=== PATIENT | female | born 1990 | race American Indian/Alaskan Native ===

== ENCOUNTER 2017-03-26 08:22 | Emergency (ER) | payer SELFPAY ==
[2017-03-26] MEDS ORDERED: NORCO 5/325 PO ONE (09:23)
[2017-03-26] MEDS ORDERED: CLEOCIN IM ONE (09:23)
[2017-03-26] MEDS ORDERED: ZOFRAN ODT PO ONE (09:23)
[2017-03-26] MEDS ORDERED: NACL 0.9% IR ONE (09:23)
[2017-03-26] MEDS ORDERED: XYLOCAINE 1% 20 mL INFILTRATI ONE (09:25)
--- NOTE | 2017-03-26 09:31 | Emergency Department Report ---
ED Female HPI - General Chief complaint: Skin/Abscess/Foreign Body Stated complaint: CYST ON VAG Time Seen by Provider: 03/26/17 09:05 Source: patient Mode of arrival: Ambulatory Limitations: No Limitations - History of Present Illness Initial comments: PT states she noticed a bump on the R side of her vagina on Monday. PT reports recent shaving to the area. PT states she thought it was an ingrown hair but she has never had an ingrown hair do this. PT reports pain 9/10 pain with sitting and 10/10 pain with walking. PT states last night she tried a home remedy of baking soda, salt and water. PT states it did not help. PT states now her whole lip is swollen. 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 MD Complaint: pelvic pain Onset/Timin -: Gradual, days(s) Location: labia (r) Radiation: non-radiating Severity: severe Severity scale (0 -10): 10 Quality: sharp Consistency: constant Improves with: none Worsens with: movement Are you Now?: No Associated Symptoms: nausea/vomiting - Related Data Sexually active: Yes Previous Rx's Medication Instructions Recorded Last Taken Type ALBUTEROL NEB's [Proventil 0.083% 2.5 mg IH TID PRN #1 box 09/21/16 Unknown Rx NEBS] Albuterol Sulfate [Ventolin HFA] 2 puff IH Q4H PRN #1 hfa.aer.ad 09/21/16 Unknown Rx Cetirizine HCl [ZyrTEC] 10 mg PO DAILY #30 capsule 09/21/16 Unknown Rx Nebulizer/Compressor [Innospire 1 each MC TID #1 each 09/21/16 Unknown Rx Mini Compressor Neb] Clindamycin [Clindamycin CAP] 300 mg PO Q8H #30 cap 03/26/17 Unknown Rx HYDROcodone/APAP 5-325 [[place] 1 each PO Q6HR PRN #10 tablet 03/26/17 Unknown Rx 5/325] Ibuprofen [Motrin] 600 mg PO Q8H PRN #15 tablet 03/26/17 Unknown Rx Allergies Allergy/AdvReac Type Severity Reaction Status Date / Time seafood Allergy Swelling Uncoded 07/05/16 23:49 ED Review of Systems ROS: Stated complaint: CYST ON VAG Other details as noted in HPI Comment: All other systems reviewed and negative Constitutional: denies: chills, fever Gastrointestinal: nausea. denies: abdominal pain, vomiting Genitourinary: other (pain and swellig ). denies: dysuria Skin: as per HPI, change in color ED Past Medical Hx - Past Medical History Previous Medical History?: Yes Hx Asthma: Yes Additional medical history: murmur. 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 murmur repair - Social History Smoking Status: Current Every Day Smoker Substance Use Type: Alcohol - Medications Home Medications: Home Medications Medication Instructions Recorded Confirmed Last Taken Type ALBUTEROL NEB's [Proventil 0.083% 2.5 mg IH TID PRN #1 box 09/21/16 Unknown Rx NEBS] Albuterol Sulfate [Ventolin HFA] 2 puff IH Q4H PRN #1 hfa.aer.ad 09/21/16 Unknown Rx Cetirizine HCl [ZyrTEC] 10 mg PO DAILY #30 capsule 09/21/16 Unknown Rx Nebulizer/Compressor [Innosp[place] 1 each MC TID #1 each 09/21/16 Unknown Rx Mini Compressor Neb] Clindamycin [Clindamycin CAP] 300 mg PO Q8H #30 cap 03/26/17 Unknown Rx HYDROcodone/APAP 5-325 [[place] 1 each PO Q6HR PRN #10 tablet 03/26/17 Unknown Rx 5/325] Ibuprofen [Motrin] 600 mg PO Q8H PRN #15 tablet 03/26/17 Unknown Rx ED Physical Exam - General Limitations: No Limitations General appearance: alert, other (appears in pain ) - Head Head exam: Present: atraumatic, normocephalic, normal inspection - Eye Eye exam: Present: normal appearance. Absent: PERRL, conjunctival injection - ENT ENT exam: Present: normal exam, normal external ear exam - Neck Neck exam: Present: normal inspection, full ROM - Respiratory Respiratory exam: Present: normal lung sounds bilaterally. Absent: respiratory distress, wheezes - Cardiovascular Cardiovascular Exam: Present: normal rhythm, tachycardia - GI/Abdominal GI/Abdominal exam: Present: soft, normal bowel sounds. Absent: tenderness - External exam: Present: swelling (to R labia with abscess ). Absent: lesions, ecchymosis, bleeding - Extremities Exam Extremities exam: Present: normal inspection, full ROM - Back Exam Back exam: Present: normal inspection, full ROM - Neurological Exam Neurological exam: Present: alert, oriented X3, normal gait - Psychiatric Psychiatric exam: Present: normal affect, anxious - Skin Skin exam: Present: warm, dry, intact ED Course Vital Signs 03/26/17 03/26/17 08:34 11:11 Temperature 98.7 F 99 F Pulse Rate 124 H 66 Respiratory 16 18 Rate Blood Pressure 124/71 Blood Pressure 119/60 [Left] O2 Sat by Pulse 98 98 Oximetry - Reevaluation(s) Reevaluation #1: 03/26/17 09:32 PT aware of plan of care. PT gave verbal consent for bedside I and D. Reevaluation #2: 03/26/17 11:14 PT tolerated the I and D without any immediate complications. PT given verbal instructions on home care. PT aware she will need to return in 2 days for recheck - I & D Right Lateral Genitals Type of Procedure: Complex Site: R labia Blade Size: 11 I & D Procedure: betadine prep, sterile drapes applied, sterile dressing applied , gauze wick placed (1/2 inch iodoform ) Progress: Pt's skin cleansed with betadine. 8 mls of 1% lidocaine used to anesthetize the area. 11 blade was used to make an incision, + copious amount of purulent drainage noted. site flushed with sterile water and hemostats were used to break up any loculations. 1/2 inch packing placed. - Pulse Oximetry Interpretation Digit-Finger Initial Pulse Oximetry Readin Actions Taken: none ED Medical Decision Making - Differential Diagnosis abscess, cellulitis Critical Care Time: No Critical care attestation.: If time is entered above; I have spent that time in minutes in the direct care of this critically ill patient, excluding procedure time. ED Disposition Clinical Impression: Abscess or cellulitis of groin Disposition: DC-01 TO HOME OR SELFCARE Is pt being admited?: No Does the pt Need Aspirin: No Condition: Stable Instructions: Cellulitis (ED), Abscess Incision and Drainage (ED), Abscess (ED) Additional Instructions: Warm compresses at least 4 times a day No driving or ETOH after taking [place] Return in 2 days for packing removal/ wound recheck REturn to the ED sooner if worsening No shaving Prescriptions: Clindamycin [Clindamycin CAP] 300 mg PO Q8H #30 cap HYDROcodone/APAP 5-325 [[place] 5/325] 1 each PO Q6HR PRN #10 tablet PRN Reason: Pain Ibuprofen [Motrin] 600 mg PO Q8H PRN #15 tablet PRN Reason: Pain Referrals: PRIMARY CARE, [Primary Care Provider] - 3-5 Days MEAGAN ROMERO MD [Staff Physician] - 3-5 Days Time of Disposition: 11:16
[2017-03-26] MEDS: EMLA TP ONE ×2 (09:55→10:37)
[2017-03-26 11:13] VITALS: BP 119/60
== END 2017-03-26 11:20 | disposition home or self-care (01) ==
LOC: ED 08:22
DX: N76.4 Abscess of vulva (principal); Z91.013 Allergy to seafood
CPT/HCPCS: 87116; 96372; Q0162

== ENCOUNTER 2017-03-28 10:48 | Emergency (ER) | payer SELFPAY ==
[2017-03-28 11:28] VITALS: BP 118/71
--- NOTE | 2017-03-28 12:00 | Emergency Department Report ---
Suture/Staple Removal - HPI Chief Complaint: Skin/Abscess/Foreign Body Stated Complaint: REMOVE PACKING OUT OF CUT Time Seen by Provider: 03/28/17 11:49 When Sutures or [place] Placed: 2 days ago Wound Location: R groin ED Review of Systems ROS: Stated complaint: REMOVE PACKING OUT OF CUT Other details as noted in HPI Comment: All other systems reviewed and negative Constitutional: denies: chills, fever Gastrointestinal: denies: nausea, vomiting, diarrhea Genitourinary: other (pt states the swelling has decreased, + drainage for I and D site ). denies: dysuria Skin: other (packing in place to R labia) ED Past Medical Hx - Past Medical History Hx Asthma: Yes Additional medical history: murmur. 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 murmur repair - Social History Smoking Status: Current Every Day Smoker Substance Use Type: None - Medications Home Medications: Home Medications Medication Instructions Recorded Confirmed Last Taken Type ALBUTEROL NEB's [Proventil 0.083% 2.5 mg IH TID PRN #1 box 09/21/16 Unknown Rx NEBS] Albuterol Sulfate [Ventolin HFA] 2 puff IH Q4H PRN #1 hfa.aer.ad 09/21/16 Unknown Rx Cetirizine HCl [ZyrTEC] 10 mg PO DAILY #30 capsule 09/21/16 Unknown Rx Nebulizer/Compressor [Innospire 1 each MC TID #1 each 09/21/16 Unknown Rx Mini Compressor Neb] Clindamycin [Clindamycin CAP] 300 mg PO Q8H #30 cap 03/26/17 Unknown Rx HYDROcodone/APAP 5-325 [[place] 1 each PO Q6HR PRN #10 tablet 03/26/17 Unknown Rx 5/325] Ibuprofen [Motrin] 600 mg PO Q8H PRN #15 tablet 03/26/17 Unknown Rx Suture Removal Exam - Exam General: Vital signs noted. No distress. Alert and acting appropriately. R labia with swelling, decreased from previous visit, + tenderness, + packing in place, Wound: Yes Tenderness, Yes Drainage, Yes Pus, No Pathologic Erythema Other Systems: All other systems reviewed and are unremarkable. ED Course Vital Signs 03/28/17 11:27 Temperature 98.3 F Pulse Rate 64 Respiratory 16 Rate Blood Pressure 118/71 O2 Sat by Pulse 100 Oximetry - Reevaluation(s) Reevaluation #1: 03/28/17 11:59 PT tolerated the procedure well. PT aware she will need to return in 2 more days for packing removal. - Procedure Description Procedures done: Packing removed, + drainage, site flushed with normal saline, site repacked with 1/4 iodoform guaze. pt tolerated well. - Pulse Oximetry Interpretation Digit-Finger Initial Pulse Oximetry Readin Actions Taken: none ED Recheck MDM - Differential Diagnosis Wound Recheck, Cutananeous Abscess reche Critical Care Time: No Critical care attestation.: If time is entered above; I have spent that time in minutes in the direct care of this critically ill patient, excluding procedure time. ED Disposition Clinical Impression: Change or removal of wound packing Disposition: DC-01 TO HOME OR SELFCARE Is pt being admited?: No Does the pt Need Aspirin: No Condition: Stable Instructions: Abscess (ED) Additional Instructions: Continue your antibiotics Continue warm compresses Return in 2 days for removal of packing Time of Disposition: 12:01
== END 2017-03-28 12:09 | disposition home or self-care (01) ==
LOC: ED 10:48
DX: N76.4 Abscess of vulva (principal)
CPT/HCPCS: 99282